=== PATIENT | male | born 1975 | race Caucasian/White ===

== ENCOUNTER 2024-04-21 18:24 | Inpatient (IN) | payer SELFPAY ==
[~2024-04-21] VITALS: Ht 157.5 cm; Wt 69.0 kg
[~2024-04-21 18:24] MED LIST: FAMO20TA8 PO; IBUP-2028 MT; METR-167 PO
[2024-04-21 19:22] LABS: BASOPHILS % 0.3 % (0.0-2.0); EOSINOPHILS % 0.6 % (0.0-5.0); HEMATOCRIT. 41.6 % (42.0-52.0); HEMOGLOBIN. 14.3 g/dL (14.0-18.0); LYMPHOCYTES % 19.4 % (20.0-50.0); MEAN CORPUSCULAR HEMOGLOBIN 31.7 pg (28.0-32.0); MEAN CORPUSCULAR HGB CONC 34.3 g/dL (31.0-37.0); MEAN CORPUSCULAR VOLUME 92.5 fL (80.0-94.0); MEAN PLATELET VOLUME 6.5 fl (7.4-10.4); MONOCYTES % 6.1 % (2.0-8.0); NEUTROPHILS % 73.6 % (40.0-76.0); PLATELET 374 x1000/uL (130-400); RED CELL DISTRIBUTION WIDTH 13.5 % (11.6-14.6); WHITE BLOOD COUNT 12.1 x1000/uL (4.5-11.0)
[2024-04-21 19:25] LABS: CHLORIDE 108 mEq/L (98-107); POTASSIUM 3.6 mEq/L (3.5-5.1); SODIUM 143 mEq/L (136-145)
[2024-04-21 19:26] LABS: CARBON DIOXIDE 28 mEq/L (21-32)
[2024-04-21 19:27] LABS: CALCIUM 9.4 mg/dL (8.7-10.4)
[2024-04-21 19:31] LABS: CREATININE 0.9 mg/dL (0.6-1.3); GLUCOSE 105 mg/dL (70-105)
[2024-04-21 19:32] LABS: UREA NITROGEN BLOOD 8 mg/dL (9-23)
[2024-04-21 19:33] LABS: ALANINE AMINOTRANSFERASE 27 IU/L (10-49); ALBUMIN 4.3 g/dL (3.2-4.8); ASPARTATE AMINOTRANSFERASE 18 IU/L (<34)
[2024-04-21 19:34] LABS: BILIRUBIN DIRECT 0.2 mg/dL (<=3.0); BILIRUBIN TOTAL 0.7 mg/dL (0.1-1.0); PROTEIN TOTAL 7.2 g/dL (6.0-8.3)
[2024-04-21] MEDS: SODIUM CHLORIDE 0.9% 500 ML IV ONE (23:31)
[2024-04-22 00:44] LABS: CLARITY URINE CLEAR (CLEAR); COLOR URINE YELLOW (YELLOW)
[2024-04-22 00:45] LABS: GLUCOSE URINE NEGATIVE (NEGATIVE); KETONES URINE NEGATIVE (NEGATIVE); LEUKOCYTE ESTERASE URINE NEGATIVE (NEGATIVE); NITRITE URINE NEGATIVE (NEGATIVE); OCCULT BLOOD URINE NEGATIVE (NEGATIVE); PROTEIN URINE TRACE (NEGATIVE); SPECIFIC GRAVITY URINE 1.022 (1.005-1.030)
[2024-04-22] MEDS: PIPERACILLIN/TAZO 3.375G/50ML 50 ML IV NR (01:00)
[2024-04-22] MEDS: SODIUM CHLORIDE 0.9% (SEPSIS BOLUS) IV NR (01:00)
[2024-04-22] MEDS: VANCOMYCIN 1G PREMIX 200 ML IV NR (03:00)
[2024-04-22] MEDS ORDERED: ACETAMINOPHEN 325MG TABLET PO PRN ×2 (03:30)
[2024-04-22] MEDS ORDERED: CLONIDINE 0.1MG TABLET PO PRN (03:30)
[2024-04-22] MEDS ORDERED: IPRATROPIUM/ALBUTEROL 0.5-3(2.5)MG/3ML NEB HHN PRN (03:30)
[2024-04-22] MEDS ORDERED: DOCUSATE SODIUM 100MG CAPSULE PO PRN (03:30)
[2024-04-22] MEDS ORDERED: ONDANSETRON HCL 4MG/2ML INJ IV PRN (03:30)
[2024-04-22] MEDS ORDERED: MAGNESIUM/ALUMINUM HYDROXIDE/SIMETHICONE 30ML UDC PO PRN (03:30)
[2024-04-22] MEDS: DEXT 5%/0.45% NACL 1000ML 1,000 ML IV SCH (03:38)
[2024-04-22 05:40] LABS: BACTERIA URINE NONE SEEN; RBC URINE NONE SEEN /hpf (0-2); SQUAMOUS EPITHELIAL CELL URINE NONE SEEN /lpf (RARE/1+); WBC URINE NONE SEEN /hpf (0-2)
[2024-04-22 07:16] LABS: *AMPHETAMINES SCREEN URINE NEGATIVE (NEGATIVE); *BARBITURATES SCREEN URINE NEGATIVE (NEGATIVE); *BENZODIAZEPINES SCREEN URINE NEGATIVE (NEGATIVE); *COCAINE SCREEN URINE NEGATIVE (NEGATIVE)
[2024-04-22 07:17] LABS: CANNABINOID URINE SCREEN NEGATIVE (NEGATIVE); ECSTASY MDMA SCREEN URINE NEGATIVE (NEGATIVE); METHADONE URINE SCREEN NEGATIVE (NEGATIVE); OPIATES URINE SCREEN NEGATIVE (NEGATIVE); PHENCYCLIDINE URINE SCREEN NEGATIVE (NEGATIVE)
[2024-04-22] MEDS ORDERED: ENOXAPARIN 40MG/0.4ML SYR SUBCUT SCH (09:00)
[2024-04-22] MEDS ORDERED: VANCOMYCIN 750MG/150ML (BAXTER) IV SCH (09:00)
[2024-04-22] MEDS: PIPERACILLIN/TAZO 3.375G/50ML 50 ML IV SCH (09:24)
[2024-04-22] MEDS: PANTOPRAZOLE SODIUM 40 MG/VIAL IV SCH (09:24)
[2024-04-22 10:20] VITALS: BP 105/83; PULSE 76; RESP 18; TEMP 36.5292
[2024-04-22 12:00] VITALS: BP 101/60; PULSE 76; RESP 18; TEMP 36.72516; O2SAT 97
[2024-04-22] MEDS: VANCOMYCIN 1GM/200ML PMX (BAXTER) IV SCH (12:06)
[2024-04-22 16:00] VITALS: BP 101/57; PULSE 77; RESP 18; TEMP 36.50292; O2SAT 100
[2024-04-22 20:00] VITALS: BP 113/68; PULSE 83; RESP 21; TEMP 36.6696; O2SAT 98
[2024-04-22] MEDS: GUAIFENESIN 200MG/10ML SUGAR FREE UDC PO PRN (23:22)
[2024-04-23] VITALS: BP 101/69; PULSE 73; RESP 19; TEMP 37.39188; O2SAT 100
[2024-04-23 04:00] VITALS: BP 104/71; PULSE 74; RESP 19; TEMP 36.72516; O2SAT 97
[2024-04-23 08:00] VITALS: BP_SYST 103; BP_SYST 97; BP_DIAS 57; BP_DIAS 68; PULSE 71; PULSE 72; RESP 18; TEMP 36.72516; O2SAT 97
[2024-04-23 09:16] LABS: BASOPHILS % 0.7 % (0.0-2.0); EOSINOPHILS % 1.4 % (0.0-5.0); HEMATOCRIT. 37.9 % (42.0-52.0); LYMPHOCYTES % 24.2 % (20.0-50.0); MEAN CORPUSCULAR HEMOGLOBIN 31.9 pg (28.0-32.0); MEAN CORPUSCULAR HGB CONC 34.3 g/dL (31.0-37.0); MEAN CORPUSCULAR VOLUME 92.9 fL (80.0-94.0); MEAN PLATELET VOLUME 6.8 fl (7.4-10.4); MONOCYTES % 6.2 % (2.0-8.0); NEUTROPHILS % 67.5 % (40.0-76.0); PLATELET 342 x1000/uL (130-400); RED BLOOD CELL COUNT 4.08 mill/uL (4.7-6.1); RED CELL DISTRIBUTION WIDTH 13.5 % (11.6-14.6); WHITE BLOOD COUNT 8.6 x1000/uL (4.5-11.0)
[2024-04-23 10:13] LABS: CHLORIDE 108 mEq/L (98-107); POTASSIUM 3.7 mEq/L (3.5-5.1); SODIUM 142 mEq/L (136-145)
[2024-04-23 10:14] LABS: CALCIUM 9.2 mg/dL (8.7-10.4); CARBON DIOXIDE 26 mEq/L (21-32); T4 FREE 0.95 ng/dL (0.89-1.76); THYROID STIMULATING HORMONE 2.82 uIU/mL (0.55-4.78)
[2024-04-23 10:19] LABS: CREATININE 0.9 mg/dL (0.6-1.3); GLUCOSE 84 mg/dL (70-105); TRIGLYCERIDE 169 mg/dL (0-150); UREA NITROGEN BLOOD 10 mg/dL (9-23)
[2024-04-23 10:20] LABS: LDL CHOLESTEROL 95 mg/dL (5-100)
[2024-04-23 10:21] LABS: CHOLESTEROL 167 mg/dL (<200); HDL CHOLESTEROL 37 mg/dL (>55)
[2024-04-23] MEDS ORDERED: PANT40TA51 PO (10:58)
[2024-04-23] MEDS ORDERED: LEVO750T68 MT (10:58)
[2024-04-23 12:00] VITALS: BP 113/64; PULSE 84; RESP 18; TEMP 36.44736; O2SAT 97
[2024-04-23 14:37] VITALS: BP 111/69; PULSE 78; TEMP 97.5; O2SAT 97
== END 2024-04-23 15:03 | disposition home or self-care (01) | DRG 244 ==
LOC: ER 18:24 → 7EST 04-22 00:58
PROVIDERS: ADMIT Internal Medicine; ATTEND Internal Medicine
DX: K57.32 Diverticulitis of large intestine without perforation or abscess without bleeding (principal); D72.829 Elevated white blood cell count, unspecified; Z79.899 Other long term (current) drug therapy
CPT/HCPCS: 36415; 74176; 80048; 80061; 80076; 80202; 80305; 81003; 83605; 84145; 84439; 84443; 85025; 87077; 99291; J2470; J2543; J3370